=== PATIENT | male | born 1970 | race Caucasian/White ===

== ENCOUNTER → 2019-05-16 | Outpatient (CLI) | payer OTHER ==
[~2019-05-16] MED LIST: AMOX1TAB63 PO; ATOR40TA PO; ATOR80TA PO; BUDE10.2 IH; CEFU500T49 PO; CYCL10TA2 PO; DICY10CA3 PO; FLUC200T4 PO; FLUT15.812; IBUP-1129 PO; INSU100I31 SQ; INSU100V5 SQ; INSU100V8 SQ; IPRA0.2S34 IH; ISOS30TA4 PO; LEVO750T5 PO; LISI1TAB19 PO; MERO1VIA3 IV; METO25TA4 PO; NEOM10DR9 OT; OSEL75CA PO; PIOG15TA26 PO; TERB250T12 PO; TIOT4MIS3 IH; TOPI50TA35 PO; TRAM50TA PO; VANC500V IV
[2019-05-16 18:17] LABS: MEAN CORP HGB 29.1 pg (26-34); RED CELL DISTRIBUTION WIDTH 13.6 % (11.5-14.5)
[2019-05-16 19:44] LABS: CALCIUM 9.5 mg/dL (8.4-10.5); CARBON DIOXIDE 31.1 mmol/L (20.0-32)
== END | disposition home or self-care (01) ==
LOC: LAB 17:30
PROVIDERS: ATTEND Internal Medicine
DX: Z13.29 Encounter for screening for other suspected endocrine disorder (principal); I10 Essential (primary) hypertension; E78.5 Hyperlipidemia, unspecified; E34.9 Endocrine disorder, unspecified; E03.4 Atrophy of thyroid (acquired); E11.40 Type 2 diabetes mellitus with diabetic neuropathy, unspecified; E55.9 Vitamin D deficiency, unspecified; D51.0 Vitamin B12 deficiency anemia due to intrinsic factor deficiency; R53.83 Other fatigue; M06.4 Inflammatory polyarthropathy; Z79.891 Long term (current) use of opiate analgesic; Z79.899 Other long term (current) drug therapy
CPT/HCPCS: 36415; 80053; 80061; 82306; 82607; 83036; 84439; 84443; 85027; 85651; 86140

== ENCOUNTER 2019-05-18 19:31 | Emergency (ER) | payer OTHER ==
[~2019-05-18] VITALS: Ht 170.2 cm; Wt 121.6 kg
[2019-05-18 19:40] VITALS: BP 129/81
[2019-05-18 19:48] VITALS: BP 129/81
[2019-05-18 20:00] VITALS: BP 149/86
[2019-05-18] MEDS ORDERED: COMPAZINE IM STA (20:11)
--- NOTE | 2019-05-18 20:11 | ER.PDOC ---
General Chief Complaint: Headache Stated Complaint: MIGRAINE Time seen by MD: 20:04 Source: patient Exam Limitations: no limitations History of Present Illness Initial Comments 48 Y/O MALE WITH TYPICAL MIGRAINE MARINELLI X 2 DAYS, NOT WORSE MARINELLI OF LIFE, DOES HAVE PHOTOPHOBIA , NO N/V, NO FEVER, NO OTHER COMPLAINTS. PATIENT REQUESTS MORPHINE--OTHER OPTIONS DISCUSSED --PATIENT AGREES TO--HE WANTS SHOTS, NO IV. Timing/Duration: other Severity/Quality: severe, throbbing Prior Headaches/Recent Trauma: frequent headaches Associated Symptoms: other Prior symptoms/Treatment: Similar symptoms previous, Recenly Seen Allergies: Coded Allergies: codeine (Verified Allergy, Unknown, 12/03/16) Home Meds Active Scripts Cefuroxime Axetil (CEFUROXIME) 500 Mg Tablet, 1 TAB PO BID for 5 Days, #10 TAB 0 Refills Prov:PRIMO GUZMAN MD 05/06/19 Insulin Regular, Human (HUMULIN R) 100 Unit/1 Ml Vial, 0 UNIT SQ ACHS for 30 Days, VIAL Prov:PRIMO GUZMAN MD 05/06/19 Insulin Glargine,Hum.rec.anlog (LANTUS) 100 Unit/1 Ml Vial, 20 UNIT SQ HS for 30 Days, VIAL Prov:PRIMO GUZMAN MD 05/06/19 Ipratropium [place] (IPRATROPIUM BROMIDE) 0.2 Mg/1 Ml Solution, 0.5 MG IH RTQ6 for 30 Days, ML Prov:PRIMO GUZMAN MD 05/06/19 Oseltamivir Phosphate (TAMIFLU) 75 Mg Capsule, 75 MG PO BID for 2 Days, CAPSULE Prov:PRIMO GUZMAN MD 05/06/19 Reported Medications Tiotropium Br/Olodaterol HCl (Stiolto Respimat Inhal [place]) 4 Gm Mist.inhal, 4 GM IH DAILY24 05/03/19 Metoprolol Tartrate 25MG (LOPRESSER 25MG) 25 Mg Tablet, 1 TAB PO DAILY24, #180 TAB 1 Refill 05/03/19 Budesonide/Formoterol Fumarate (SYMBICORT 160-4.5 MCG INHALER) 10.2 Gm Hfa.aer.ad, 2 PUFF IH BID, #10.6 GRAM 3 Refills 05/03/19 Fluticasone Propionate (Allergy Relief) 50 Mcg/Actuation [place].susp, 2 SPR NA QD for 30 Days, MILLILITER 0 Refills 05/03/19 Cyclobenzaprine Hcl (FLEXERIL) 10 Mg Tablet, 1 TAB PO HS, #30 TAB 05/03/19 Lisinopril/Hydrochlorothiazide (LISINOPRIL-HCTZ 20-12.5 MG TAB) 1 Each Tablet, 1 TAB PO DAILY, #30 TAB 5 Refills 05/03/19 Terbinafine Hcl (TERBINAFINE HCL) 250 Mg Tablet, 1 TAB PO QD for 30 Days, #30 TAB 0 Refills 05/03/19 Isosorbide Mononitrate (ISOSORBIDE MONONITRATE ER) 30 Mg Tab.er.24h, 1 TAB PO DAILY, #30 TAB 5 Refills 05/03/19 Topiramate (TOPAMAX) 50 Mg Tablet, 50 MG PO DAILY24, TAB 05/03/19 Atorvastatin 40MG (LIPITOR 40MG) 40 Mg Tablet, 1 TAB PO HS, #90 TAB 1 Refill 05/03/19 Past Medical History Medical History: asthma, COPD, diabetes, high cholesterol, hypertension Surgical History: cardiac cath, other Social History Alcohol Use: occassionally Drug Use: none, marijuana Results/Orders Results/Orders Orders - KE MAYER DO Prochlorperazine Edisylate (Compazine) (05/18/19 20:11) Ketorolac Tromethamine (Toradol) (05/18/19 20:30) Dexamethasone Sodium Phosphate (Decadron (05/18/19 20:30) Ketorolac Tromethamine (Toradol) (05/18/19 20:18) Prochlorperazine Edisylate (Compazine) (05/18/19 20:18) Dexamethasone Sodium Phosphate (Decadron (05/18/19 20:18) Vital Signs Date Time Temp Pulse Resp B/P (MAP) Pulse Ox O2 Delivery O2 Flow Rate FiO2 05/18/19 19:48 97.7 87 18 05/18/19 19:48 97.7 87 18 129/81 (97) 96 05/18/19 19:40 97.7 87 18 96 05/05/19 21:00 65 Administered Medications Medications (Trade) Dose Ordered Sig/Sharon Route PRN Reason Start Time Stop Time Status Last Admin Dose Admin Ketorolac Tromethamine (Toradol) 60 mg STAT ONCE IM 05/18/19 20:30 05/18/19 20:31 DC 05/18/19 20:28 60 MG Prochlorperazine Edisylate (Compazine) 10 mg STAT STAT IM 05/18/19 20:11 05/18/19 20:15 DC 05/18/19 20:28 10 MG Progress Progress ADMIT AT [facility]--05/03/2019--05/06/2019 REVIEWED--PATIENT HAVING NO RESP COMPLAINTS. AT 2119---MARINELLI MUCH BETTER--WANTS TO GO HOME, DIFF DX IN DETAIL--TO ED IF NO BETTER OR WORSE---FOLLOW UP WITH YOUR DR. Course Sepsis Screening Results: Posi: POSITIVE Sepsis Qualifier/Stage: SEPSIS RISK Duration or Total Time Spent w: 60 mins Vitals & review Data Vital Sign - Last 24 Hours 05/05/19 05/18/19 05/18/19 05/18/19 21:00 19:40 19:48 19:48 Temp 97.7 97.7 97.7 Pulse 65 87 87 87 Resp 18 18 18 B/P (MAP) 129/81 (97) Pulse Ox 96 96 LEVEL 1 SEPSIS INFECTION CRITE: ABX Therapy, Cough/Shortness of Breath, Flu- Pneumonia LEVEL 2-SIRS (LIST ALL THAT AP: None/Not assessed Cardiovascular Evidence: Not Assessed or None Hematologic Evidence: None/Not assessed Hepatic Evidence: None/Not assessed Metabolic Evidence: None/Not assessed Neurological Evidence: None/Not assessed Respiratory Evidence: Need for O2 to keep>90%, O2 SAT<90room air Renal Evidence: None/Not assessed O2 Sat by Pulse Oximetry: 96 Departure Time of Disposition: 21:24 Disposition: 01 HOME, SELF-CARE Impression: Primary Impression: Headache Condition: Stable Patient Instructions: Migraine Headache Referrals: RIO GARCIA MD (PCP) PRIMARY CARE PROVIDER Additional Instructions: TO ED NEEDED OR IF WORSE, FOLLOW UP WITH YOUR DR, RX COMPAZINE. Duration or Time Spent with Pa: 15 MIN KE MAYER DO May 18, 2019 20:11
[2019-05-18] MEDS ORDERED: DECADRON ONE (20:18)
[2019-05-18] MEDS ORDERED: TORADOL ONE (20:18)
[2019-05-18] MEDS ORDERED: COMPAZINE ONE (20:18)
[2019-05-18] MEDS ORDERED: DECADRON IM SCH (20:30)
[2019-05-18] MEDS ORDERED: TORADOL IM ONE (20:30)
[2019-05-18 21:00] VITALS: BP 131/75
== END 2019-05-18 21:30 | disposition home or self-care (01) ==
LOC: ER 19:31
DX: G43.909 Migraine, unspecified, not intractable, without status migrainosus (principal); J45.909 Unspecified asthma, uncomplicated; E11.9 Type 2 diabetes mellitus without complications; E78.00 Pure hypercholesterolemia, unspecified; I10 Essential (primary) hypertension; Z88.5 Allergy status to narcotic agent; Z79.899 Other long term (current) drug therapy; Z79.4 Long term (current) use of insulin; Z79.1 Long term (current) use of non-steroidal anti-inflammatories (NSAID)
CPT/HCPCS: 96372; 99284; J0780; J1100; J1885

== ENCOUNTER → 2019-06-14 | Outpatient (CLI) | payer OTHER ==
[2019-06-14 12:53] LABS: BASOPHIL # 0.1 10^3/uL (0.0-0.1); BASOPHIL % 0.6 % (0.0-0.2); EOSINOPHIL # 0.3 10^3/uL (0.0-0.2); EOSINOPHIL % 2.5 % (0.0-5.0); LYMPHOCYTES # 3.43 10^3/uL1 (1.0-4.8); LYMPHOCYTES % 32.2 % (24.0-44.0); MEAN CORP HGB 29.5 pg (26-34); MONOCYTES # 0.6 10^3/uL (0.3-0.8); MONOCYTES % 5.4 % (5.0-12.0); NEUTROPHIL # 6.3 10^3/uL (1.8-7.7); NEUTROPHILS % 59.1 % (41.0-85.0); PLATELET COUNT 246 10^3/uL (150-400); RED CELL DISTRIBUTION WIDTH 14.1 % (11.5-14.5)
[2019-06-14 13:11] LABS: ALANINE AMINOTRANSFERASE(ML) 36 U/L (12-78); ALKALINE PHOSPHATASE 101 U/L (50-136); ASPARTATE AMINO TRANSFERASE 14 U/L (0-35); CALCIUM 9.3 mg/dL (8.4-10.5); CARBON DIOXIDE 26.6 mmol/L (20.0-32); CHOLESTEROL 267 mg/dL (120-240); GLUCOSE 188 mg/dL (70-110); HDL CHOLESTEROL 29 mg/dL (32-96)
[2019-06-14 14:29] LABS: ERYTHROCYTE SEDIMENTATION RATE 2 mm/hr (0-20)
== END | disposition home or self-care (01) ==
LOC: LAB 12:08
PROVIDERS: ATTEND Internal Medicine
DX: E78.5 Hyperlipidemia, unspecified (principal); E11.40 Type 2 diabetes mellitus with diabetic neuropathy, unspecified; I51.9 Heart disease, unspecified; E55.9 Vitamin D deficiency, unspecified; R53.83 Other fatigue; M06.4 Inflammatory polyarthropathy; D51.0 Vitamin B12 deficiency anemia due to intrinsic factor deficiency; R94.5 Abnormal results of liver function studies; R94.4 Abnormal results of kidney function studies
CPT/HCPCS: 36415; 80053; 80061; 82306; 82607; 83036; 83880; 85025; 85651; 86140

== ENCOUNTER → 2019-10-21 | Outpatient (CLI) | payer OTHER ==
[~2019-10-21] MED LIST changes: +MERO1VIA23 IV; -MERO1VIA3 IV; +VENTOLIN IH ONE
== END | disposition home or self-care (01) ==
LOC: RT 13:43
PROVIDERS: ATTEND Internal Medicine
DX: J44.1 Chronic obstructive pulmonary disease with (acute) exacerbation (principal)
CPT/HCPCS: 94060; J7613

== ENCOUNTER 2020-09-20 11:09 | Emergency (ER) | payer OTHER ==
[~2020-09-20] VITALS: Ht 170.2 cm; Wt 120.2 kg
[~2020-09-20 11:09] MED LIST changes: -ISOS30TA4 PO; +ISOS30TA73 PO; -LISI1TAB19 PO; +LISI1TAB39 PO; -VENTOLIN IH ONE
--- NOTE | 2020-09-20 12:20 | NUR ---
ARRIVAL PT ARRIVED TO ED WITH C/O RIGHT ARM/ELBOW PAIN FOR 2 WEEKS WITH NUMBNESS IN 4TH AND 5TH FINGERS ON RIGHT HAND. PT DENIES ANY INJURY. BEDSIDE MONITORS APPLIED. VITAL SIGNS STABLE. BED IN LOW LOCKED POSITION.
[2020-09-20 12:32] VITALS: BP 141/86
[2020-09-20] MEDS ORDERED: TORADOL IM STA (12:34)
[2020-09-20 12:36] VITALS: BP 141/86
[2020-09-20] MEDS ORDERED: TORADOL ONE (12:37)
--- NOTE | 2020-09-20 12:37 | ER.PDOC ---
General Chief Complaint: Extremities Stated Complaint: ARM PAIN Time seen by MD: 12:25 Source: patient Exam Limitations: no limitations History of Present Illness Initial Comments Patient is a 49-year-old male who presents today with numbness and tingling in the fourth and fifth digit of the right hand. Patient's exam is consistent with ulnar neuropathy. Spent a considerable amount of time counseling the patient on supportive therapies including splinting the elbow at night as well as ice baths. Patient counseled on the need for follow-up with PCP and neurology for an EMG study. Patient has no motor weakness at this time his only sensation that is dulled. Patient stable for discharge Allergies: Coded Allergies: codeine (Verified Allergy, Unknown, 12/03/16) Home Meds Active Scripts Cefuroxime Axetil (CEFUROXIME) 500 Mg Tablet, 1 TAB PO BID for 5 Days, #10 TAB 0 Refills Prov:PRIMO GUZMAN MD 05/06/19 Insulin Regular, Human (HUMULIN R) 100 Unit/1 Ml Vial, 0 UNIT SQ ACHS for 30 Days, VIAL Prov:PRIMO GUZMAN MD 05/06/19 Insulin Glargine,Hum.rec.anlog (LANTUS) 100 Unit/1 Ml Vial, 20 UNIT SQ HS for 30 Days, VIAL Prov:PRIMO GUZMAN MD 05/06/19 Ipratropium [place] (IPRATROPIUM BROMIDE) 0.2 Mg/1 Ml Solution, 0.5 MG IH RTQ6 for 30 Days, ML Prov:PRIMO GUZMAN MD 05/06/19 Oseltamivir Phosphate (TAMIFLU) 75 Mg Capsule, 75 MG PO BID for 2 Days, CAPSULE Prov:PRIMO GUZMAN MD 05/06/19 Reported Medications Tiotropium Br/Olodaterol HCl (Stiolto Respimat Inhal [place]) 4 Gm Mist.inhal, 4 GM IH DAILY24 05/03/19 Metoprolol Tartrate 25MG (LOPRESSER 25MG) 25 Mg Tablet, 1 TAB PO DAILY24, #180 TAB 1 Refill 05/03/19 Budesonide/Formoterol Fumarate (SYMBICORT 160-4.5 MCG INHALER) 10.2 Gm Hfa.aer.ad, 2 PUFF IH BID, #10.6 GRAM 3 Refills 05/03/19 Fluticasone Propionate (Allergy Relief) 50 Mcg/Actuation [place].susp, 2 SPR NA QD for 30 Days, MILLILITER 0 Refills 05/03/19 Cyclobenzaprine Hcl (FLEXERIL) 10 Mg Tablet, 1 TAB PO HS, #30 TAB 05/03/19 Lisinopril/Hydrochlorothiazide (LISINOPRIL-HCTZ 20-12.5 MG TAB) 1 Each Tablet, 1 TAB PO DAILY, #30 TAB 5 Refills 05/03/19 Terbinafine Hcl (TERBINAFINE HCL) 250 Mg Tablet, 1 TAB PO QD for 30 Days, #30 TAB 0 Refills 05/03/19 Isosorbide Mononitrate (ISOSORBIDE MONONITRATE ER) 30 Mg Tab.er.24h, 1 TAB PO DAILY, #30 TAB 5 Refills 05/03/19 Topiramate (TOPAMAX) 50 Mg Tablet, 50 MG PO DAILY24, TAB 05/03/19 Atorvastatin 40MG (LIPITOR 40MG) 40 Mg Tablet, 1 TAB PO HS, #90 TAB 1 Refill 05/03/19 Past Medical History Medical History: asthma, COPD, diabetes, high cholesterol, hypertension Surgical History: other Social History Drug Use: none, marijuana Reviewed Nursing Reviewed: Vital Signs, Abn. Noted, Nursing Assessment Review of Systems Constitutional: denies no symptoms reported, denies see HPI, denies chills, denies diaphoresis, denies fever, denies malaise, denies weakness, denies other EENTM: denies no symptoms reported, denies see HPI, denies eye pain, denies blurred vision, denies tearing, denies double vision, denies ear pain, denies ear discharge, denies nose pain, denies nose congestion, denies throat pain, denies throat swelling, denies mouth pain, denies mouth swelling, denies other Respiratory: denies no symptoms reported, denies see HPI, denies cough, denies orthopnea, denies shortness of breath, denies stridor, denies wheezing, denies other Cardiovascular: denies no symptoms reported, denies see HPI, denies chest pain, denies edema, denies palpitations, denies syncope, denies other Gastrointestinal: denies no symptoms reported, denies see HPI, denies abdominal pain, denies constipation, denies diarrhea, denies nausea, denies vomiting, denies other Genitourinary: denies no symptoms reported, denies see HPI, denies discharge, denies dysuria, denies frequency, denies hematuria, denies pain, denies other Musculoskeletal: see HPI Skin: denies no symptoms reported, denies see HPI, denies change in color, denies change in hair/nails, denies dryness, denies lesions, denies lumps, denies rash, denies other Psychiatric/Neurological: denies no symptoms reported, denies see HPI, denies anxiety, denies depressed, denies emotional problems, denies headache, denies numbness, denies paresthesia, denies pre-existing deficit, denies seizure, denies tingling, denies tremors, denies weakness, denies other All Other Systems: Reviewed and Negative Physical Exam General Appearance: Alert, No Apparent Distress Hand: nml inspection, non-tender Wrist: nml inspection, non-tender, nml ROM Forearm/Elbow: nml inspection, non-tender, nml ROM Arm/Shoulder: nml inspection, non-tender, nml ROM Neuro/Vasc/Tendon: sensory deficit Skin: warm/dry Head/ENT: nml inspection, pharynx nml Neck/Back: nml inspection, non-tender Respiratory: chest non-tender, breath sounds nml CVS: heart sounds normal Abdomen: non-tender, no organomegaly Results/Orders Results/Orders Orders - LILA BURKS DO Ketorolac Tromethamine (Toradol) (09/20/20 12:34) Vital Signs Date Time Temp Pulse Resp B/P (MAP) Pulse Ox O2 Delivery O2 Flow Rate FiO2 09/20/20 12:32 98.1 110 20 95 ER DEPART Departure Time of Disposition: 12:38 Disposition: 01 HOME / SELF CARE / HOMELESS Impression: Primary Impression: Ulnar neuropathy at elbow Additional Impression: Ulnar neuropathy at elbow of right upper extremity Condition: Improved Patient Instructions: Electromyography (EMG) Test, Ulnar Nerve Contusion with Rehab-SportsMed Referrals: RIO GARCIA MD (PCP) PRIMARY CARE PROVIDER Duration or Time Spent with Pa: 0 Problem Qualifiers Primary Impression: Ulnar neuropathy at elbow Laterality: right Qualified Codes: G56.21 - Lesion of ulnar nerve, right upper limb LILA BURKS DO Sep 20, 2020 12:37
== END 2020-09-20 12:42 | disposition home or self-care (01) ==
LOC: ER 11:09
DX: G56.21 Lesion of ulnar nerve, right upper limb (principal); E11.9 Type 2 diabetes mellitus without complications; E78.00 Pure hypercholesterolemia, unspecified; I10 Essential (primary) hypertension; J44.9 Chronic obstructive pulmonary disease, unspecified; Z79.4 Long term (current) use of insulin; Z79.51 Long term (current) use of inhaled steroids; Z79.899 Other long term (current) drug therapy; Z88.5 Allergy status to narcotic agent
CPT/HCPCS: 96372; 99283; J1885

== ENCOUNTER 2021-08-02 11:28 | Emergency (ER) | payer OTHER ==
[~2021-08-02] VITALS: Ht 170.2 cm; Wt 117.9 kg
[2021-08-02 11:28] VITALS: BP 137/101
[~2021-08-02 11:28] MED LIST changes: +CYCL10TA19 PO; -CYCL10TA2 PO; -FLUC200T4 PO; +FLUC200T6 PO; -TERB250T12 PO; +[UNRECOGNIZED DRUG - CODE] PO
[2021-08-02] MEDS ORDERED: LACTATED RINGERS 1,000 ML IV STA (11:50)
[2021-08-02] MEDS ORDERED: TORADOL IV STA (11:50)
--- NOTE | 2021-08-02 11:54 | ER.PDOC ---
General Chief Complaint: Abdomen Pain Stated Complaint: ABD PAIN,DIARRHEA Time seen by MD: 11:53 Source: patient Exam Limitations: no limitations History of Present Illness Initial Comments Abdominal pain and diarrhea for 5 days. Patient has not had diarrhea today. No fever or chills. No nausea or vomiting. Severity/Quality: moderate, sharpness Radiation: no radiation Associated Symptoms: diarrhea Exacerbated by: nothing Relieved By: nothing Allergies: Coded Allergies: codeine (Verified Allergy, Unknown, 12/03/16) Home Meds Active Scripts Cefuroxime Axetil (CEFUROXIME) 500 Mg Tablet, 1 TAB PO BID for 5 Days, #10 TAB 0 Refills Prov:PRIMO GUZMAN MD 05/06/19 Insulin Regular, Human (HUMULIN R) 100 Unit/1 Ml Vial, 0 UNIT SQ ACHS for 30 Days, VIAL Prov:PRIMO GUZMAN MD 05/06/19 Insulin Glargine,Hum.rec.anlog (LANTUS) 100 Unit/1 Ml Vial, 20 UNIT SQ HS for 30 Days, VIAL Prov:PRIMO GUZMAN MD 05/06/19 Ipratropium [place] (IPRATROPIUM BROMIDE) 0.2 Mg/1 Ml Solution, 0.5 MG IH RTQ6 for 30 Days, ML Prov:PRIMO GUZMAN MD 05/06/19 Oseltamivir Phosphate (TAMIFLU) 75 Mg Capsule, 75 MG PO BID for 2 Days, CAPSULE Prov:PRIMO GUZMAN MD 05/06/19 Reported Medications Tiotropium Br/Olodaterol HCl (Stiolto Respimat Inhal [place]) 4 Gm Mist.inhal, 4 GM IH DAILY24 05/03/19 Metoprolol Tartrate 25MG (LOPRESSER 25MG) 25 Mg Tablet, 1 TAB PO DAILY24, #180 TAB 1 Refill 05/03/19 Budesonide/Formoterol Fumarate (SYMBICORT 160-4.5 MCG INHALER) 10.2 Gm H fa.aer.ad, 2 PUFF IH BID, #10.6 GRAM 3 Refills 05/03/19 Fluticasone Propionate (Allergy Relief) 50 Mcg/Actuation [place].susp, 2 SPR NA QD for 30 Days, MILLILITER 0 Refills 05/03/19 Cyclobenzaprine Hcl (FLEXERIL) 10 Mg Tablet, 1 TAB PO HS, #30 TAB 05/03/19 Lisinopril/Hydrochlorothiazide (LISINOPRIL-HCTZ 20-12.5 MG TAB) 1 Each Tablet, 1 TAB PO DAILY, #30 TAB 5 Refills 05/03/19 Terbinafine Hcl (TERBINAFINE HCL) 250 Mg Tablet, 1 TAB PO QD for 30 Days, #30 TAB 0 Refills 05/03/19 Isosorbide Mononitrate (ISOSORBIDE MONONITRATE ER) 30 Mg Tab.er.24h, 1 TAB PO DAILY, #30 TAB 5 Refills 05/03/19 Topiramate (TOPAMAX) 50 Mg Tablet, 50 MG PO DAILY24, TAB 05/03/19 Atorvastatin 40MG (LIPITOR 40MG) 40 Mg Tablet, 1 TAB PO HS, #90 TAB 1 Refill 05/03/19 Vital Signs First Vital Signs Date Time Temp Pulse Resp B/P (MAP) Pulse Ox O2 Delivery O2 Flow Rate FiO2 08/02/21 11:28 98.5 99 20 137/101 (113) 95 Room Air* 0 21 Last Vital Signs Date Time Temp Pulse Resp B/P (MAP) Pulse Ox O2 Delivery O2 Flow Rate FiO2 08/02/21 11:28 98.5 99 20 08/02/21 11:28 95 08/02/21 11:28 137/101 (113) Room Air* 0 21 Past Medical History Medical History: asthma, COPD, diabetes, high cholesterol, hypertension Surgical History: other Family History Significant Family History: no pertinent family hx Social History Smoking: non-smoker Alcohol Use: none Drug Use: marijuana Constitutional: no symptoms reported EENTM: no symptoms reported Respiratory: no symptoms reported Cardiovascular: no symptoms reported Gastrointestinal: see HPI All Other Systems: Reviewed and Negative Physical Exam General Appearance: No Apparent Distress, WD/WN HEENT: PERRL/EOMI, Normal ENT Inspection, TMs Normal, Pharynx Normal Neck: Non-Tender, Full Range of Motion, Supple, Normal Inspection Respiratory: chest non-tender, lungs clear, normal breath sounds, no respiratory distress, no accessory muscle use Cardiovascular: Normal Peripheral Pulses, Regular Rate, Rhythm, No Edema, No Gallop, No JVD, No Murmur, Tachycardia Gastrointestinal: Normal Bowel Sounds, No Organomegaly, No Pulsatile Mass, Guarding, Tenderness (LLQ) Back: Normal Inspection, No CVA Tenderness, No Vertebral Tenderness Extremities: Normal Range of Motion, Non-Tender, Normal Inspection, No Pedal Edema, No Calf Tenderness, Normal Capillary Refill, Pelvis Stable Neurologic/Psychiatric: make ready mechanic II-XII NML as Tested, No Motor/Sensory Deficits, Alert, Normal Mood/Affect, Oriented x 3 Skin: Normal Color, Warm/Dry Lymphatic: No Adenopathy Results/Orders Results/Orders Orders - ROSY SANDOVAL MD Cbc With Auto Diff (08/02/21 11:50) Comprehensive Metabolic Panel (08/02/21 11:50) Lipase (08/02/21 11:50) PT (08/02/21 11:50) Ct Abd/Pel With Iv Contrast (08/02/21 11:50) Partial Thromboplastin Time. (08/02/21 11:50) Urinalysis (08/02/21 11:50) Lactic Acid(Ml) (08/02/21 11:50) Ringer's Solution,Lactated (Lactated Rin (08/02/21 11:50) Ketorolac Tromethamine (Toradol) (08/02/21 11:50) Ringer's Solution,Lactated (Lactated Rin (08/02/21 12:35) Ketorolac Tromethamine (Toradol) (08/02/21 12:35) Blood Culture (08/02/21 13:58) Ciprofloxacin Hcl (Cipro) (08/02/21 13:58) Metronidazole (Flagyl) (08/02/21 13:58) Metronidazole (Flagyl) (08/02/21 14:03) Ciprofloxacin Hcl (Cipro) (08/02/21 14:03) Vital Signs Date Time Temp Pulse Resp B/P (MAP) Pulse Ox O2 Delivery O2 Flow Rate FiO2 08/02/21 11:28 98.5 99 20 08/02/21 11:28 98.5 99 20 95 08/02/21 11:28 98.5 99 20 137/101 (113) 95 Room Air* 0 21 Administered Medications Medications (Trade) Dose Ordered Sig/Sharon Route PRN Reason Start Time Stop Time Status Last Admin Dose Admin Ciprofloxacin (Cipro) 500 mg STAT STAT PO 08/02/21 13:58 08/02/21 14:00 DC 08/02/21 14:06 500 MG Ketorolac Tromethamine (Toradol) 30 mg STAT STAT IV 08/02/21 11:50 08/02/21 11:53 DC 08/02/21 12:37 30 MG Metronidazole (Flagyl) 500 mg STAT STAT PO 08/02/21 13:58 08/02/21 14:00 DC 08/02/21 14:06 500 MG Laboratory Tests Test 08/02/21 12:09 08/02/21 12:42 White Blood Count 16.4 10^3/uL (4.5-11.0) H Red Blood Count 5.63 10^6/uL (4.50-5.90) Hemoglobin 16.5 g/dL (13.9-16.3) H Hematocrit 50.1 % (37.0-53.0) Mean Corpuscular Volume 89.0 fL (78-100) Mean Corpuscular Hemoglobin 29.3 pg (26-34) Mean Corpuscular Hemoglobin Concent 32.9 g/dL (33-36.5) L Red Cell Distribution Width 13.2 % (11.5-14.5) Platelet Count 225 10^3/uL (150-400) Mean Platelet Volume 10.8 fL (7.8-11.0) Neutrophils (%) (Auto) 75.9 % (41.0-85.0) Lymphocytes (%) (Auto) 16.0 % (24.0-44.0) L Monocytes (%) (Auto) 6.0 % (5.0-12.0) Neutrophils # (Auto) 12.4 10^3/uL (1.8-7.7) H Lymphocytes # (Auto) 2.63 10^3/uL1 (1.0-4.8) Monocytes # (Auto) 1.0 10^3/uL (0.3-0.8) H Absolute Immature Granulocyte (auto 0.03 10^3 u/L (0-2) Absolute Eosinophils (auto) 0.3 10^3/uL (0.0-0.2) H Immature Granulocytes % 0.20 % (0.00-0.50) Eosinophils % 1.6 % (0.0-5.0) Basophils % 0.3 % (0.0-0.2) H Basophils # 0.1 10^3/uL (0.0-0.1) Prothrombin Time 9.9 SEC (9.1-11.5) Prothrombin Time INR (Non-Therap) 1.0 Activated Partial Thromboplast Time 27.8 SEC (22.5-33.1) Sodium Level 134 mmol/L (132-145) Potassium Level 3.9 mmol/L (3.6-5.2) Chloride Level 100.0 mmol/L (96-109) Carbon Dioxide Level 27.5 mmol/L (20.0-32) Anion Gap 10.4 Blood Urea Nitrogen 9 mg/dL (7-18) Creatinine 1.06 mg/dL (0.59-1.40) Estimated GFR () 89.1 (>/=60) Est GFR (CKD-EPI)(Non-Afr Swedish) 73.7 (>/=60) BUN/Creatinine Ratio 8.0 Glucose Level 235 mg/dL (70-110) H Lactic Acid Level 1.1 mmol/L (0.5-1.9) Calcium Level 8.9 mg/dL (8.4-10.5) Total Bilirubin 0.9 mg/dL (0.2-1.0) Aspartate Amino Transferase (AST) 14 U/L (0-35) Alanine Aminotransferase (ALT) 34 U/L (12-78) Alkaline Phosphatase 105 U/L (50-136) Total Protein 8.1 g/dL (6.4-8.2) Albumin 3.8 g/dL (3.4-5.0) Globulin 4.3 Albumin/Globulin Ratio 0.883 Lipase 67 U/L (114-286) L Urine Collection Type RANDOM Urine Color YELLOW Urine Appearance CLEAR Urine Bilirubin NEGATIVE (NEGATIVE) Urine Ketones TRACE (NEGATIVE) H Urine Specific Coul[place] >=1.030 (1.005-1.030) Urine pH 5.0 (4.5-8.0) Urine Protein TRACE (NEGATIVE) Urine Urobilinogen 1.0 E.U./dL (0.2) Urine Nitrate NEGATIVE (NEGATIVE) Urine Leukocyte Esterase NEGATIVE (NEGATIVE) Urine Glucose (Auto)(UA) 250 mg/dL (NEGATIVE) H Urine Blood NEGATIVE (NEGATIVE) Urine RBC 0-2 RBC/HPF (NONE SEEN) Urine WBC 0-2 WBC/HPF (0-2) Urine Squamous Epithelial Cells FEW (<=FEW) Urine Bacteria NONE SEEN (NONE SEEN) Urine Mucus MANY (NONE SEEN) Progress Progress CT abdomen/pelvis: Proximal sigmoid diverticulitis. No drainable abscess identified at this time. 2. Hepatic steatosis and mild hepatomegaly. Urinalysis is unremarkable. Chemistry show a glucose of 235 and rest of chemistry is normal. Lipase is 67. WBC is 16.4. Patient received a liter of NS, Cipro and Flagyl. He also received Toradol for pain. He is feeling better to go home. Heart rate is down in the 80s. Vital signs are stable. ER DEPART Departure Time of Disposition: 14:10 Disposition: 01 HOME / SELF CARE / HOMELESS Impression: Primary Impression: Acute diverticulitis of intestine Condition: Improved Referrals: RIO GARCIA MD (PCP) PRIMARY CARE PROVIDER Additional Instructions: Cipro Flagyl Tramadol Ibuprofen Follow-up with your PCP in 2 to 3 days Return to ED if worsening pain or concerns Duration or Time Spent with Pa: 60 min ROSY SANDOVAL MD Aug 02, 2021 11:54
--- NOTE | 2021-08-02 11:54 | NUR ---
ARRIVAL PATIENT ARRIVED TO ED7 AMBULATORY, C/O LEFT LOWER ABDOMEN PAIN FOR THE PAST 5 DAYS, DENIES TAKING ANY MEDICATIONS REJECTOR, CAME TO THE ED FOR EVAL, VITAL SIGNS OBTAINED AND DOCTOR JAIME NOTIFIED OF PATIENT'S ARRIVAL.
[2021-08-02 12:14] LABS: BASOPHIL # 0.1 10^3/uL (0.0-0.1); BASOPHIL % 0.3 % (0.0-0.2); EOSINOPHIL # 0.3 10^3/uL (0.0-0.2); EOSINOPHIL % 1.6 % (0.0-5.0); LYMPHOCYTES # 2.63 10^3/uL1 (1.0-4.8); MEAN CORP HGB 29.3 pg (26-34); NEUTROPHIL # 12.4 10^3/uL (1.8-7.7); NEUTROPHILS % 75.9 % (41.0-85.0); PLATELET COUNT 225 10^3/uL (150-400); RED CELL DISTRIBUTION WIDTH 13.2 % (11.5-14.5)
[2021-08-02 12:30] LABS: CARBON DIOXIDE 27.5 mmol/L (20.0-32)
[2021-08-02] MEDS ORDERED: TORADOL ONE (12:35)
[2021-08-02] MEDS ORDERED: LACTATED RINGERS 1,000 ML ONE (12:35)
[2021-08-02 12:57] LABS: BILIRUBIN,URINE NEGATIVE (NEGATIVE)
--- NOTE | 2021-08-02 13:45 | DIREP ---
PROCEDURE:CT ABDOMEN/PELVIS W/ CONTRAST COMPARISON:None. INDICATIONS:LLQ pain TECHNIQUE:Axial images were created through the abdomen and pelvis with non-ionic intravenous contrast material. No oral contrast was administered. Sagittal and coronal reconstructions were performed from source images. FINDINGS: LUNG BASES:Normal. No visible pulmonary or pleural disease. LIVER:Fatty infiltration. No focal mass. Mild hepatomegaly. Craniocaudal diameter the liver measures 20 cm. BILIARY:Normal. No visible dilatation or calcification. PANCREAS:Normal. No lesion, fluid collection, ductal dilatation, or atrophy. SPLEEN:Normal. No enlargement or focal lesion. ADRENALS:Normal. No mass or enlargement. URINARY TRACT:Normal. No focal lesions or hydronephrosis. AORTA/VASCULAR:Minimal scattered calcifications. No aneurysm. RETROPERITONEUM:Normal. No mass or adenopathy. BOWEL/MESENTERY:Multiple colonic diverticula with mild hyperenhancement of several proximal sigmoid colon diverticula. Wall thickening at the junction of the descending and sigmoid colon with edema of the adjacent pericolic fat. No intestinal obstruction, free air, or free fluid. ABDOMINAL WALL:Normal. No mass or hernia. PELVIC ORGANS:Normal. No visible mass. Pelvic organs appropriate for patient age. BONES:Normal for age. No bony lesion or acute fracture. OTHER:Negative. CONCLUSION: 1. Proximal sigmoid diverticulitis. No drainable abscess identified at this time. 2. Hepatic steatosis and mild hepatomegaly.. Dictated by: Sam Pendleton M.D. on 08/02/2021 at 01:33 PM
[2021-08-02] MEDS ORDERED: FLAGYL PO STA (13:58)
[2021-08-02] MEDS ORDERED: CIPRO PO STA (13:58)
[2021-08-02] MEDS ORDERED: FLAGYL ONE (14:03)
[2021-08-02] MEDS ORDERED: CIPRO ONE (14:03)
== END 2021-08-02 14:19 | disposition home or self-care (01) ==
LOC: ER 11:28
DX: R10.9 Unspecified abdominal pain (principal); K57.92 Diverticulitis of intestine, part unspecified, without perforation or abscess without bleeding; F12.90 Cannabis use, unspecified, uncomplicated; E78.00 Pure hypercholesterolemia, unspecified; J44.9 Chronic obstructive pulmonary disease, unspecified; E11.9 Type 2 diabetes mellitus without complications; I10 Essential (primary) hypertension; Z88.5 Allergy status to narcotic agent
CPT/HCPCS: 36415; 74177; 80053; 81001; 83605; 83690; 85025; 85610; 85730; 87040 ×2; 96361; 96374; 99285; J1885; J7120; Q9965